=== PATIENT | female | born 1965 | race Asian ===

== ENCOUNTER 2020-06-22 18:07 | Emergency (ER) | payer OTHER ==
[~2020-06-22] VITALS: Ht 180.3 cm; Wt 74.4 kg
[2020-06-22 18:17] VITALS: TEMP 98.1
[2020-06-22 19:17] VITALS: BP 193/97
== END 2020-06-22 19:28 | disposition home or self-care (01) ==
LOC: ED 18:07
DX: I10 Essential (primary) hypertension (principal); F41.8 Other specified anxiety disorders
CPT/HCPCS: 99283